=== PATIENT | male | born 1970 | race African-American/Black ===

== ENCOUNTER 2016-05-03 08:15 | Emergency (ER) | payer BC ==
[~2016-05-03] VITALS: Ht 175.3 cm; Wt 160.0 kg
[~2016-05-03 08:15] MED LIST: AMLO5TAB4 PO; ASPI-1035 PO; INSU3INS6 SUBCUT; LISI40TA4 PO; METF500T4 PO; NAPR-681 PO; OMEP40CA34 PO; PRAV40TA58 PO
[2016-05-03 10:10] VITALS: BP 139/71
[2016-05-03 11:18] LABS: BASOPHILS % 1.3 % (0.0-2.0); EOSINOPHILS % 2.4 % (0.0-5.0); HEMATOCRIT. 43.7 % (42.0-52.0); HEMOGLOBIN. 14.1 g/dL (14.0-18.0); LYMPHOCYTES % 26.5 % (20.0-50.0); MEAN CORPUSCULAR HEMOGLOBIN 28.4 pg (28.0-32.0); MEAN CORPUSCULAR HGB CONC 32.4 g/dL (31.0-37.0); MEAN CORPUSCULAR VOLUME 87.6 fL (80.0-94.0); MEAN PLATELET VOLUME 8.3 fl (7.4-10.4); MONOCYTES % 8.7 % (2.0-8.0); NEUTROPHILS % 61.1 % (40.0-76.0); PLATELET 234 x1000/uL (130-400); RED BLOOD CELL COUNT 4.99 mill/uL (4.7-6.1); RED CELL DISTRIBUTION WIDTH 15.2 % (11.6-14.6); WHITE BLOOD COUNT 7.2 x1000/uL (4.5-11.0)
[2016-05-03 11:24] LABS: PROTHROMBIN TIME 10.5 sec
[2016-05-03 11:28] LABS: CHLORIDE 106 mEq/L (98-107); INDEX HEMOLYSI 2 (1-3); INDEX ICTERIC 1 (1-4); INDEX LIPEMIC 1 (1-3)
[2016-05-03 11:30] LABS: ALBUMIN 3.2 g/dL (3.4-5.0); ANION GAP 8; CALCIUM 8.2 mg/dL (8.5-10.1); CARBON DIOXIDE 33 mEq/L (21-32); UREA NITROGEN BLOOD 12 mg/dL (7-21)
[2016-05-03 11:37] LABS: ALANINE AMINOTRANSFERASE 21 IU/L (13-61); NT PRO B-TYPE NATRIURETIC PEP 46 pg/mL (5-125); TROPONIN I < 0.02 ng/mL (0.00-0.04); eGFR > 60 mL/min (>60)
== END 2016-05-03 12:33 | disposition home or self-care (01) ==
LOC: ER 08:37
DX: R06.09 Other forms of dyspnea (principal); E66.01 Morbid (severe) obesity due to excess calories; E11.9 Type 2 diabetes mellitus without complications; G47.30 Sleep apnea, unspecified; F17.210 Nicotine dependence, cigarettes, uncomplicated; F12.10 Cannabis abuse, uncomplicated; Z68.43 Body mass index [BMI] 50.0-59.9, adult; Z71.3 Dietary counseling and surveillance
CPT/HCPCS: 36415; 71010; 80053; 83880; 84484; 85025; 85610; 93005; 93970; 99285; Z7610

== ENCOUNTER 2016-08-03 13:49 | Emergency (ER) | payer BC ==
[~2016-08-03] VITALS: Ht 175.3 cm; Wt 172.0 kg
[~2016-08-03 13:49] MED LIST changes: -ASPI-1035 PO; +ASPI-1159 PO; +FURO-151 PO; +INSHUMSS SUBCUT; +LINZESS PO; +[UNRECOGNIZED DRUG - CODE] IV
[2016-08-03] MEDS ORDERED: IBUPROFEN 800MG TABLET PO ONE (14:45)
[2016-08-03 18:44] VITALS: BP 129/80
== END 2016-08-03 18:45 | disposition home or self-care (01) ==
LOC: ER 14:26
DX: S93.401A Sprain of unspecified ligament of right ankle, initial encounter (principal); J44.9 Chronic obstructive pulmonary disease, unspecified; E11.9 Type 2 diabetes mellitus without complications; F17.200 Nicotine dependence, unspecified, uncomplicated; F12.90 Cannabis use, unspecified, uncomplicated; F14.90 Cocaine use, unspecified, uncomplicated; Z79.4 Long term (current) use of insulin; W19.XXXA Unspecified fall, initial encounter; Y93.89 Activity, other specified; Y92.89 Other specified places as the place of occurrence of the external cause; Y99.8 Other external cause status
CPT/HCPCS: 29515; 73610; 93971; 99284; Z7610

== ENCOUNTER 2016-10-18 17:22 | Emergency (ER) | payer BC ==
[~2016-10-18] VITALS: Ht 175.3 cm; Wt 160.0 kg
[2016-10-18 17:34] VITALS: BP 143/65
== END 2016-10-18 23:15 | disposition left against medical advice (07) ==
LOC: ER 17:22
DX: Z53.21 Procedure and treatment not carried out due to patient leaving prior to being seen by health care provider (principal)

== ENCOUNTER 2016-11-28 11:05 | Emergency (ER) | payer BC ==
[~2016-11-28] VITALS: Ht 175.3 cm; Wt 159.0 kg
[2016-11-28 15:50] VITALS: BP 144/50
== END 2016-11-28 16:12 | disposition home or self-care (01) ==
LOC: ER 13:21
DX: J01.90 Acute sinusitis, unspecified (principal); J44.9 Chronic obstructive pulmonary disease, unspecified; E11.9 Type 2 diabetes mellitus without complications; Z79.4 Long term (current) use of insulin; Z79.82 Long term (current) use of aspirin; F17.210 Nicotine dependence, cigarettes, uncomplicated
CPT/HCPCS: 99283

== ENCOUNTER 2017-02-07 15:21 | Emergency (ER) | payer BC ==
[~2017-02-07] VITALS: Ht 175.3 cm; Wt 159.0 kg
[2017-02-07 21:53] LABS: CHLORIDE 105 mEq/L (98-107)
[2017-02-07 22:05] LABS: CARBON DIOXIDE 28 mEq/L (21-32); TROPONIN I < 0.02 ng/mL (0.00-0.04)
[2017-02-08 00:13] VITALS: BP 141/61
== END 2017-02-08 00:12 | disposition home or self-care (01) ==
LOC: ER 15:41
DX: J40 Bronchitis, not specified as acute or chronic (principal); E11.9 Type 2 diabetes mellitus without complications; J44.9 Chronic obstructive pulmonary disease, unspecified; F17.200 Nicotine dependence, unspecified, uncomplicated; Z79.4 Long term (current) use of insulin; Z79.82 Long term (current) use of aspirin
CPT/HCPCS: 36415; 71010; 80053; 83880; 84484; 87804; 93005; 99285

== ENCOUNTER 2017-04-17 13:42 | Emergency (ER) | payer BC ==
[~2017-04-17] VITALS: Ht 175.3 cm; Wt 159.0 kg
[2017-04-17] MEDS ORDERED: ACETAMINOPHEN WITH CODEINE 300/30MG TABLET PO ONE (20:15)
[2017-04-17 21:48] VITALS: BP 123/64
== END 2017-04-17 21:37 | disposition home or self-care (01) ==
LOC: ER 20:36
DX: M79.605 Pain in left leg (principal); E11.9 Type 2 diabetes mellitus without complications; I10 Essential (primary) hypertension; E78.00 Pure hypercholesterolemia, unspecified; J44.9 Chronic obstructive pulmonary disease, unspecified; F12.10 Cannabis abuse, uncomplicated; F17.200 Nicotine dependence, unspecified, uncomplicated; Z98.890 Other specified postprocedural states; Z79.4 Long term (current) use of insulin
CPT/HCPCS: 93971; 99284

== ENCOUNTER 2017-10-11 12:29 | Emergency (ER) | payer BC ==
[~2017-10-11] VITALS: Ht 175.3 cm; Wt 155.0 kg
[~2017-10-11 12:29] MED LIST changes: -METF500T4 PO; +METF500T6 PO
[2017-10-11 14:06] LABS: BASOPHILS % 0.5 % (0.0-2.0); EOSINOPHILS % 2.2 % (0.0-5.0); HEMATOCRIT. 42.9 % (42.0-52.0); HEMOGLOBIN. 14.4 g/dL (14.0-18.0); LYMPHOCYTES % 35.6 % (20.0-50.0); MEAN CORPUSCULAR VOLUME 89.5 fL (80.0-94.0); MONOCYTES % 11.3 % (2.0-8.0); NEUTROPHILS % 50.4 % (40.0-76.0); PLATELET 302 x1000/uL (130-400); RED BLOOD CELL COUNT 4.79 mill/uL (4.7-6.1); RED CELL DISTRIBUTION WIDTH 14.2 % (11.6-14.6)
[2017-10-11 14:13] LABS: CHLORIDE 105 mEq/L (98-107); PROTHROMBIN TIME 9.9 sec (9.1-11.1)
[2017-10-11 19:14] LABS: CLARITY URINE CLEAR (CLEAR); COLOR URINE YELLOW (YELLOW); KETONES URINE NEGATIVE (NEGATIVE); LEUKOCYTE ESTERASE URINE NEGATIVE (NEGATIVE); NITRITE URINE NEGATIVE (NEGATIVE); OCCULT BLOOD URINE NEGATIVE (NEGATIVE); PH URINE 6.5 (4.5-8.0); PROTEIN URINE NEGATIVE (NEGATIVE); SPECIFIC GRAVITY URINE 1.022 (1.005-1.030)
[2017-10-11 19:52] VITALS: BP 119/80
== END 2017-10-11 20:17 | disposition home or self-care (01) ==
LOC: ER 12:29
DX: R10.13 Epigastric pain (principal); E11.9 Type 2 diabetes mellitus without complications; Z79.4 Long term (current) use of insulin; Z79.899 Other long term (current) drug therapy
CPT/HCPCS: 36415; 74176; 80053; 81003; 83690; 85025; 85610; 93005; 99285

== ENCOUNTER 2019-02-20 10:14 | Emergency (ER) | payer BC ==
[~2019-02-20] VITALS: Ht 175.3 cm; Wt 330.0 kg
[~2019-02-20 10:14] MED LIST changes: -ASPI-1159 PO; +ASPI-1497 PO; +METF-414 PO; -METF500T6 PO; +OMEP40CA12 PO; -OMEP40CA34 PO
[2019-02-20] MEDS ORDERED: ACETAMINOPHEN 325MG TABLET PO ONE (11:45)
[2019-02-20 12:36] VITALS: BP 137/70
== END 2019-02-20 12:36 | disposition home or self-care (01) ==
LOC: ER 10:14
DX: J06.9 Acute upper respiratory infection, unspecified (principal)
CPT/HCPCS: 71046; 99283

== ENCOUNTER 2019-09-21 13:01 | Emergency (ER) | payer BC ==
[~2019-09-21] VITALS: Ht 175.3 cm; Wt 159.0 kg
[2019-09-21] MEDS ORDERED: SODIUM CHLORIDE 0.9% 1,000 ML IV ONE (13:11)
[2019-09-21] MEDS ORDERED: ONDANSETRON HCL 4MG/2ML INJ IV STA (13:11)
[2019-09-21] MEDS ORDERED: FAMOTIDINE 20MG/2ML VIAL IV STA (13:11)
[2019-09-21 14:19] LABS: BASOPHILS % 0.6 % (0.0-2.0); CHLORIDE 109 mEq/L (98-107); EOSINOPHILS % 0.9 % (0.0-5.0); HEMATOCRIT. 39.2 % (42.0-52.0); LYMPHOCYTES % 16.5 % (20.0-50.0); MEAN CORPUSCULAR HEMOGLOBIN 29.5 pg (28.0-32.0); MEAN CORPUSCULAR VOLUME 88.8 fL (80.0-94.0); MEAN PLATELET VOLUME 8.4 fl (7.4-10.4); MONOCYTES % 2.8 % (2.0-8.0); NEUTROPHILS % 79.2 % (40.0-76.0); PLATELET 254 x1000/uL (130-400); RED BLOOD CELL COUNT 4.41 mill/uL (4.7-6.1); RED CELL DISTRIBUTION WIDTH 14.4 % (11.6-14.6)
[2019-09-21 14:24] LABS: ETHANOL BLOOD < 10 mg/dL
[2019-09-21 16:41] LABS: PROTHROMBIN TIME 10.6 sec (9.6-11.0)
[2019-09-21 16:47] LABS: CLARITY URINE CLEAR (CLEAR); COLOR URINE YELLOW (YELLOW); KETONES URINE NEGATIVE (NEGATIVE); LEUKOCYTE ESTERASE URINE NEGATIVE (NEGATIVE); NITRITE URINE NEGATIVE (NEGATIVE); OCCULT BLOOD URINE NEGATIVE (NEGATIVE); PH URINE 5.5 (4.5-8.0); PROTEIN URINE 1+ (NEGATIVE); SPECIFIC GRAVITY URINE 1.022 (1.005-1.030)
[2019-09-21 17:07] LABS: *AMPHETAMINES SCREEN URINE NEGATIVE (NEGATIVE); *BARBITURATES SCREEN URINE NEGATIVE (NEGATIVE); *BENZODIAZEPINES SCREEN URINE NEGATIVE (NEGATIVE)
[2019-09-21 17:08] LABS: *COCAINE SCREEN URINE PRESUMTIVE POSITIVE (NEGATIVE); CANNABINOID URINE SCREEN NEGATIVE (NEGATIVE); METHADONE URINE SCREEN NEGATIVE (NEGATIVE); OPIATES URINE SCREEN NEGATIVE (NEGATIVE); PHENCYCLIDINE URINE SCREEN NEGATIVE (NEGATIVE)
[2019-09-21 19:00] VITALS: BP 134/76
== END 2019-09-21 19:00 | disposition home or self-care (01) ==
LOC: ER 13:01
DX: R10.9 Unspecified abdominal pain (principal); R11.0 Nausea; I11.0 Hypertensive heart disease with heart failure; I50.9 Heart failure, unspecified; F14.929 Cocaine use, unspecified with intoxication, unspecified; J44.9 Chronic obstructive pulmonary disease, unspecified; E11.9 Type 2 diabetes mellitus without complications; Z79.4 Long term (current) use of insulin; Z79.82 Long term (current) use of aspirin; Z98.890 Other specified postprocedural states
CPT/HCPCS: 36415; 74176; 76705; 80053; 80305; 80320; 81003; 83690; 85025; 85610; 93005; 96361; 96374; 96375; 99285; J2405; J3490; J7030; G0480

== ENCOUNTER 2021-09-07 08:43 | Emergency (ER) | payer BC ==
[~2021-09-07] VITALS: Ht 175.3 cm; Wt 169.0 kg
[~2021-09-07 08:43] MED LIST changes: +LISI40TA13 PO; -LISI40TA4 PO; -OMEP40CA12 PO; +OMEP40CA20 PO
[2021-09-07 08:57] VITALS: BP 142/58
[2021-09-07] MEDS ORDERED: ALBU18HF2 IH (13:21)
[2021-09-07] MEDS ORDERED: DEXTL PO (13:21)
[2021-09-07] MEDS ORDERED: P50 PO (13:21)
== END 2021-09-07 13:54 | disposition home or self-care (01) ==
LOC: ER 08:53
DX: U07.1 COVID-19 (principal); J40 Bronchitis, not specified as acute or chronic; E11.9 Type 2 diabetes mellitus without complications; Z98.890 Other specified postprocedural states; Z79.899 Other long term (current) drug therapy
CPT/HCPCS: 71045; 87426; 87804; 99284; C9803

== ENCOUNTER 2022-01-14 11:38 | Emergency (ER) | payer BC ==
[~2022-01-14] VITALS: Ht 175.3 cm; Wt 154.0 kg
[~2022-01-14 11:38] MED LIST changes: +ALBU18HF2 IH; +DEXTL PO; +P50 PO
[2022-01-14 16:25] LABS: BASOPHILS % 0.8 % (0.0-2.0); EOSINOPHILS % 2.8 % (0.0-5.0); HEMATOCRIT. 43.2 % (42.0-52.0); HEMOGLOBIN. 14.4 g/dL (14.0-18.0); LYMPHOCYTES % 21.6 % (20.0-50.0); MEAN CORPUSCULAR HEMOGLOBIN 29.1 pg (28.0-32.0); MEAN CORPUSCULAR VOLUME 87.2 fL (80.0-94.0); MEAN PLATELET VOLUME 9.1 fl (7.4-10.4); MONOCYTES % 9.1 % (2.0-8.0); NEUTROPHILS % 65.7 % (40.0-76.0); PLATELET 266 x1000/uL (130-400); RED BLOOD CELL COUNT 4.96 mill/uL (4.7-6.1); RED CELL DISTRIBUTION WIDTH 15.2 % (11.6-14.6)
[2022-01-14] MEDS ORDERED: ALBU18HF2 IH (17:51)
[2022-01-14 17:58] LABS: CHLORIDE 106 mEq/L (98-107)
[2022-01-14] MEDS ORDERED: P50 MT (18:13)
[2022-01-14 18:57] VITALS: BP 159/98
== END 2022-01-14 19:08 | disposition home or self-care (01) ==
LOC: ER 11:38
DX: R06.02 Shortness of breath (principal); E78.00 Pure hypercholesterolemia, unspecified; E11.9 Type 2 diabetes mellitus without complications; J45.909 Unspecified asthma, uncomplicated; I11.0 Hypertensive heart disease with heart failure; I50.9 Heart failure, unspecified; J44.1 Chronic obstructive pulmonary disease with (acute) exacerbation; Z79.82 Long term (current) use of aspirin; Z20.822 Contact with and (suspected) exposure to COVID-19; Z79.899 Other long term (current) drug therapy; Z98.890 Other specified postprocedural states
CPT/HCPCS: 36415; 71045; 80053; 83880; 84484; 85025; 87426; 87804; 93005; 99285; C9803

== ENCOUNTER 2023-02-07 11:11 | Emergency (ER) | payer BC ==
[~2023-02-07] VITALS: Ht 182.9 cm; Wt 121.0 kg
[~2023-02-07 11:11] MED LIST changes: +P50 MT
[2023-02-07 11:13] VITALS: O2SAT 98
[2023-02-07] MEDS ORDERED: IBUP-2030 MT (12:09)
[2023-02-07 13:13] VITALS: BP 134/94; PULSE 66; RESP 15; TEMP 99
== END 2023-02-07 13:40 | disposition home or self-care (01) ==
LOC: ER 11:11
DX: S93.402A Sprain of unspecified ligament of left ankle, initial encounter (principal); J44.9 Chronic obstructive pulmonary disease, unspecified; E11.9 Type 2 diabetes mellitus without complications; Z98.890 Other specified postprocedural states; X58.XXXA Exposure to other specified factors, initial encounter; Y93.89 Activity, other specified; Y92.89 Other specified places as the place of occurrence of the external cause; Y99.8 Other external cause status
CPT/HCPCS: 73600; 73620; 99284; Z7610 ×2

== ENCOUNTER 2024-12-07 09:15 | Inpatient (IN) | payer BC ==
[2024-12-07] VITALS (7 sets, daily range): BP systolic 118–127; BP diastolic 53–90; PULSE 64–82; RESP 16–18; TEMP 36.6–36.8; O2SAT 92–98
[~2024-12-07] VITALS: Ht 175.3 cm; Wt 158.8 kg
[~2024-12-07 09:15] MED LIST changes: -AMLO5TAB4 PO; +AMLO5TAB6 PO; +EMPA10TA MT; +INSU3INS2 SQ; -LINZESS PO; +LIP40 MT; -LISI40TA13 PO; +LISI40TA21 PO; -NAPR-681 PO; -P50 MT; -P50 PO; +SPIR25TA6 MT; -[UNRECOGNIZED DRUG - CODE] IV
[2024-12-07] MEDS: IPRATROPIUM BROMIDE (0.02%) 0.5MG/2.5ML NEB HHN SCH (10:07)
[2024-12-07] MEDS: ALBUTEROL (0.083%) 2.5MG/3ML NEB HHN SCH (10:07)
[2024-12-07 10:36] LABS: BASOPHILS % 0.5 % (0.0-2.0); EOSINOPHILS % 3.0 % (0.0-5.0); HEMATOCRIT. 41.5 % (42.0-52.0); HEMOGLOBIN. 13.3 g/dL (14.0-18.0); LYMPHOCYTES % 20.7 % (20.0-50.0); MEAN PLATELET VOLUME 8.3 fl (7.4-10.4); MONOCYTES % 9.0 % (2.0-8.0); NEUTROPHILS % 66.8 % (40.0-76.0); PLATELET 252 x1000/uL (130-400); RED BLOOD CELL COUNT 4.77 mill/uL (4.7-6.1); RED CELL DISTRIBUTION WIDTH 15.2 % (11.6-14.6)
[2024-12-07 10:44] LABS: CREATININE 1.2 mg/dL (0.6-1.3)
[2024-12-07 10:45] LABS: UREA NITROGEN BLOOD 16 mg/dL (9-23)
[2024-12-07 10:46] LABS: TROPONIN I HIGH SENSITIVITY 9 ng/L (3.0-53)
[2024-12-07] MEDS: METHYLPREDNISOLONE SOD SUCC 125MG/2ML (ACT-O-VIAL) IV NR (10:49)
[2024-12-07] MEDS: KETOROLAC 15MG/ML VIAL IV NR (10:49)
[2024-12-07] MEDS: FUROSEMIDE 40MG/4ML VIAL IVP NR (10:50)
[2024-12-07] MEDS ORDERED: ZOLPIDEM TARTRATE 5MG TABLET PO PRN (13:00)
[2024-12-07] MEDS ORDERED: DOCUSATE SODIUM 100MG CAPSULE PO PRN (13:00)
[2024-12-07] MEDS ORDERED: ONDANSETRON HCL 4MG/2ML INJ IV PRN (13:00)
[2024-12-07] MEDS ORDERED: ACETAMINOPHEN 325MG TABLET PO PRN ×2 (13:00)
[2024-12-07] MEDS: IPRATROPIUM/ALBUTEROL 0.5-3(2.5)MG/3ML NEB HHN SCH (13:39)
[2024-12-07] MEDS ORDERED: DEXTROSE 50% WATER 50ML SYRINGE IV PRN (13:45)
[2024-12-07] MEDS: ENOXAPARIN 40MG/0.4ML SYR SUBCUT SCH (16:07)
[2024-12-07] MEDS: BLOOD SUGAR DIAGNOSTIC STRIP TEST SCH (18:00)
[2024-12-07] MEDS: INSULIN LISPRO 100 UNITS/ML SUBCUT SCH (18:09)
[2024-12-07] MEDS ORDERED: METHYLPREDNISOLONE SOD SUCC 40MG/ML (ACT-O-VIAL) IV SCH (22:00)
== END 2024-12-07 19:00 | disposition home or self-care (01) | DRG 556 ==
LOC: ER 09:25 → 7WST 10:59 → EDBEDREQ 11:01 → EDBEDREQTM 11:01
PROVIDERS: ADMIT Internal Medicine; ATTEND Internal Medicine
DX: M79.89 Other specified soft tissue disorders (principal); Z68.43 Body mass index [BMI] 50.0-59.9, adult; I11.0 Hypertensive heart disease with heart failure; I50.9 Heart failure, unspecified; E78.5 Hyperlipidemia, unspecified; J44.89 Other specified chronic obstructive pulmonary disease; E11.9 Type 2 diabetes mellitus without complications; G47.30 Sleep apnea, unspecified; D64.9 Anemia, unspecified; E66.01 Morbid (severe) obesity due to excess calories; F17.210 Nicotine dependence, cigarettes, uncomplicated; I87.2 Venous insufficiency (chronic) (peripheral); Z79.4 Long term (current) use of insulin; Z79.84 Long term (current) use of oral hypoglycemic drugs; Z79.899 Other long term (current) drug therapy
CPT/HCPCS: 36415; 71045; 80048; 82962; 83880; 84484; 85025; 93005; 93970; 94070; 94640; 94664; 96374; 96375; 98960; 99285; J1650; J1815; J1885; J1938; J2919